=== PATIENT | female | born 1970 | race Caucasian/White ===

== ENCOUNTER 2018-01-21 10:55 | Emergency (ER) | payer SELFPAY ==
[2018-01-21 11:00] VITALS: BP 153/91
--- NOTE | 2018-01-21 13:45 | RAD ---
HISTORY: R foot pain COMPARISONS: None VIEWS: 4 , Frontal, lateral, and oblique views of the right foot FINDINGS: BONE DENSITY: Normal. BONES: There is no displaced fracture. There are plantar calcaneal enthesophytes. 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 SOFT TISSUES: Unremarkable. OTHER FINDINGS: None. IMPRESSION: NO ACUTE OSSEOUS INJURY. IF SYMPTOMS PERSIST, RECOMMEND REPEAT IMAGING.
--- NOTE | 2018-01-21 17:24 | ED ---
Lower Extremity - HPI Summary HPI Summary: Patient is a 47-year-old female presenting to the ED with right dorsal foot pain. She states she injured the area several months ago and was placed in a boot 2 months. She states she did not have pain after she removed the flu and has not had pain since that time. However, over the last 2 days she endorses worsening pain. Denies any numbness or tingling. Denies any decreased blood flow. Patient is a diabetic. She has not seen an orthopedic physician for this. She has been using ibuprofen and Tylenol with minimal relief. She has been using ice as well. - History of Current Complaint Chief Complaint: EDExtremityLower Stated Complaint: RT ANKLE INJURY Time Seen by Provider: 01/21/18 11:03 Pain Intensity: 8 - Allergies/Home Medications Allergies/Adverse Reactions: Allergies Allergy/AdvReac Type Severity Reaction Status Date / Time No Known Allergies Allergy Verified 01/21/18 11:00 Home Medications: Home Medications NK [No Home Medications Reported] 01/21/18 [History Confirmed 01/21/18] PMH/Surg Hx/FS Hx/Imm Hx Infectious Disease History: No Infectious Disease History: Denies: Traveled Outside the [place] in Last 30 Days - Social History Alcohol Use: None Substance Use Type: Reports: None Smoking Status (MU): Unknown if Ever Smoked Physical Exam Vital Signs On Initial Exam: Initial Vitals Temp Pulse Resp BP Pulse Ox 97.6 F 72 16 153/91 97 01/21/18 10:57 01/21/18 10:57 01/21/18 10:57 01/21/18 10:57 01/21/18 10:57 Diagnostics - Vital Signs Vital Signs Temp Pulse Resp BP Pulse Ox 01/21/18 14:11 97.6 F 72 16 153/91 97 01/21/18 10:57 97.6 F 72 16 153/91 97 - Laboratory Lab Statement: Any lab studies that have been ordered have been reviewed, and results considered in the medical decision making process. Discharge - Discharge Plan Condition: Stable Disposition: HOME Patient Education Materials: Arthralgia (ED) Referrals: Junior Cortes MD [Medical Doctor] - Session Gustabo MURPHY [Primary Care Provider] - Additional Instructions: Please follow-up with orthopedics if symptoms persist Ibuprofen and Tylenol may be taken intermittently every 3 hours for relief Ice and elevation Rest the foot as much as possible As discussed, likely this is an exacerbation of an osteoarthritis from the previous injury - Billing Disposition and Condition Condition: STABLE Disposition: Home
== END 2018-01-21 14:11 | disposition home or self-care (01) ==
LOC: ED 10:55
DX: M79.671 Pain in right foot (principal)
CPT/HCPCS: 99282

== ENCOUNTER 2018-06-23 11:11 | Emergency (ER) | payer OTHER ==
[2018-06-23] MEDS ORDERED: Ibuprofen TAB* 800 MG PO ONE (11:28)
--- NOTE | 2018-06-23 11:37 | ED ---
Lower Extremity - HPI Summary HPI Summary: Pt. is a 48 y.o female who presents to the ER for left pain after injury last night. Pt. states she slipped on ice and twisted left knee. No other injuries were sustained Pt. states she can ambulate with pain. Denies numbness, tingling or weakness to LLE. Sxs are mild in severity. Moving knee makes sxs worse. Rest makes sxs better. - History of Current Complaint Stated Complaint: "TWISTED LEFT KNEE" PER PT Time Seen by Provider: 06/23/18 11:28 Hx Obtained From: Patient - Allergies/Home Medications Allergies/Adverse Reactions: Allergies Allergy/AdvReac Type Severity Reaction Status Date / Time No Known Allergies Allergy Verified 01/21/18 11:00 PMH/Surg Hx/FS Hx/Imm Hx Previously Healthy: Yes - Family History Known Family History: Positive: Non-Contributory - Social History Occupation: Employed Full-time Lives: With Family Alcohol Use: None Hx Substance Use: No Substance Use Type: Reports: None Smoking Status (MU): Unknown if Ever Smoked Review of Systems Constitutional: Negative Negative: Fever Positive: Other - Left knee pain Neurological: Negative Negative: Weakness, Paresthesia, Numbness All Other Systems Reviewed And Are Negative: Yes Physical Exam Triage Information Reviewed: Yes Vital Signs Reviewed: Yes Appearance: Positive: Well-Appearing - Pt. lying in bed in NAD. Morbidly obese. Friends present. Skin: Positive: Warm, Dry Head/Face: Positive: Normal Head/Face Inspection Eyes: Positive: Normal, EOMI Musculoskeletal: Positive: Other - Good left pedal pulse. NO obvious defomities. Exam limited due to pt.'s body habitus. DIffuse pain to left knee with pain with ROM. No increased laxity noted. NO proximal hip or distal knee pain. NO breaks in the skin. No overlying erythema or increased warmth. Neurological: Positive: Normal, CN Intact II-III Procedures - Splinting Left Lower Extremity Pre-Made Type: knee immobilizer Pre-Proc Neuro Vasc Exam: normal Post-Proc Neuro Vasc Exam: normal Lower Extremity Course/Dx - Course Course Of Treatment: Pt. presenting for isoloated knee injury. Xray negative for fx/dislocation, small joint effusion, reading per radiology. Knee immobilizer placed. WIll have pt. .f.u with orthopedics for further evaluation. To ice and elevated. NSAIDS for pain as directed. Pt. understands and agrees with plan. - Diagnoses Differential Diagnosis/HQI/PQRI: Positive: Arthritis, Dislocation, Fracture ( Closed), Sprain Provider Diagnoses: Knee sprain, Knee effusion Discharge - Sign-Out/Discharge Documenting (check all that apply): Patient Departure Patient Received Moderate/Deep Sedation with Procedure: No - Discharge Plan Condition: Good Disposition: HOME Patient Education Materials: Knee Sprain (ED) Referrals: Cheko Santillan MD [Medical Doctor] - Session Gustabo MURPHY [Primary Care Provider] - Additional Instructions: Schedule a follow up appointment with your orthopedic doctor Wear brace for comfort and support Ice and elevate Ibuprofen for pain as directed Return to ER if symptoms change or worsen - Billing Disposition and Condition Condition: GOOD Disposition: Home
[2018-06-23 13:19] VITALS: BP 142/84
== END 2018-06-23 13:18 | disposition home or self-care (01) ==
LOC: ED 11:11
DX: S83.92XA Sprain of unspecified site of left knee, initial encounter (principal); M25.462 Effusion, left knee; M25.562 Pain in left knee; W00.0XXA Fall on same level due to ice and snow, initial encounter; Y92.9 Unspecified place or not applicable
CPT/HCPCS: 99282; A9270-GY